=== PATIENT | female | born 1980 | race Caucasian/White ===

== ENCOUNTER 2017-09-16 11:40 | Emergency (ER) | payer MEDICAID ==
[~2017-09-16] VITALS: Ht 167.6 cm; Wt 90.7 kg
[2017-09-16 11:43] VITALS: Ht 167.6 cm; Wt 90.7 kg
[2017-09-16 13:07] VITALS: BP 121/82
== END 2017-09-16 13:20 | disposition home or self-care (01) ==
LOC: ED 11:40
DX: G43.909 Migraine, unspecified, not intractable, without status migrainosus (principal)
CPT/HCPCS: J0780; J1885

== ENCOUNTER 2018-07-11 01:09 | Inpatient (IN) | payer MEDICAID ==
[~2018-07-11] VITALS: Ht 167.6 cm; Wt 91.4 kg
[2018-07-11 01:13] VITALS: Ht 167.6 cm; Wt 91.4 kg
--- NOTE | 2018-07-11 01:51 | NUR ---
DR ROBISON AR BEDSIDE SPEAKING WITH PATIENT.
--- NOTE | 2018-07-11 02:23 | NUR ---
PT CAME TO THE ED TODAY WITH C/O FEELING DIZZY FOR TWO HOURS.
[2018-07-11 03:24] LABS: CALCIUM 8.5 mg/dL (8.5-10.1); CARBON DIOXIDE 27.2 mmol/L (21-32); CHLORIDE SERUM 105 mmol/L (98-107); CREATININE SERUM 0.7 mg/dL (0.6-1.0); GFR1 > 60 mL/min; GLUCOSE SERUM 110 mg/dL (74-106); POTASSIUM SERUM 3.9 mmol/L (3.5-5.1); SODIUM SERUM 139 mmol/L (136-145)
[2018-07-11 03:30] LABS: BASOPHIL % 0.1 % (0-2); PLATELET COUNT 389 x10^3mcL (130-400); RED CELL DISTRIBUTION WIDTH 13.4 % (11.5-14.5)
[2018-07-11 03:32] LABS: microscopic required? YES; urine erythrocyte NEGATIVE (NEGATIVE)
[2018-07-11 03:37] LABS: ALBUMIN 3.3 g/dL (3.4-5.0); ALKALINE PHOSPHATASE 40 U/L (46-116); ALT/SGPT 22 U/L (14-59); AST/SGOT 10 U/L (15-37); BILIRUBIN TOTAL 0.27 mg/dL (0.20-1.00); FREE T4 1.08 ng/dL (0.76-1.46)
--- NOTE | 2018-07-11 05:28 | NUR ---
PT IS RESTING IN BED
--- NOTE | 2018-07-11 07:01 | NUR ---
PT CALLED ME INTO ROOM FROM NURSE'S STATION. PT HOLDING BOTH SIDES OF GURNEY AND SAYING "IT'S HAPPENING AGAIN, WHY IS THIS HAPPENING". PT STATES THAT THE ROOM IS SPINNING AND SHE FEELS NUMBNESS ON THE SIDE OF HER FACE. PT PROVIDED WITH A VOMIT BAG DUE TO SUDDEN ONSET OF NAUSEA. PT PLACED ON LENDING MANAGER AND FULL SET OF VITAL SIGNS OBTAINED. DR ENRIQUETA RAMON.
[2018-07-11 07:03] LABS: MAGNESIUM 1.9 mg/dL (1.8-2.4); PHOSPHOROUS 2.5 mg/dL (2.5-4.9)
--- NOTE | 2018-07-11 07:04 | NUR ---
PT ACTIVELY VOMITING AT THIS TIME.
--- NOTE | 2018-07-11 07:08 | NUR ---
PT MEDICATED WITH ANTIVERT 12.5MG PO PER MD PRN ORDER. PT REMAINS ON CARDIAC MONTIOR AND DENIES NAUSEA AT THIS TIME.
--- NOTE | 2018-07-11 07:10 | NUR ---
PT SITTING UP AT THIS TIME. PT NOT C/O NAUSEA AT THIS TIME. VITAL SIGNS RECHECKED AND DOCUMENTED. PT STATES THAT IF SHE DOES NOT MOVE SHE IS NOT DIZZY AT THIS TIME. PT REMAINS ON MONITOR IN VIEW OF STATION.
--- NOTE | 2018-07-11 07:33 | NUR ---
REPORT CALLED TO VELIA HOWELL
--- NOTE | 2018-07-11 08:05 | NUR ---
RECEIVED PT FROM ER BY KEL. PT AWAKE, ALERTT A/OX4. PT ON RA WITH NO RESP DISTRESS NOTED. PT ON TELE #29, DENIES CHEST PAIN. PT COMPLAINS OF HEADACHE TO BACK OF HEAD WITH CONSTANT DIZZINESS. PT REPORTS SLEEPING AND WAKING UP LAST NIGHT TO HER HEAD "SPINNING". THE EPISODE LASTED FOR 2 MIN AND HAS HAD DIZZINESS SINCE. IV ACCESS RIGHT HAND 20G C/D/I. PT AMBULATES INDEPENDENTLY. NO ISSUES WITH ELIMINATION AT THIS TIME. PT ORIENTED TO ROOM, INSTRUCTED TO USE CALL LIGHT FOR ASSISTANCE. SAFETY MEASURES IN PLACE.
--- NOTE | 2018-07-11 10:00 | NUR ---
DUE MEDS ADMINISTERED ORDERED (SEE EMAR). PT STATES HEADACHE IS 5/10 AND TOLERABLE AT THIS TIME. PT COMPLAINS OF DIZZINESS BUT NOT SEVERE. PT STATES SHE IS AFRAID IT WILL HAPPEN WHEN SHE SLEEPS. (SPINNING) NO ACUTE DISTRESS NOTED AT THIS TIME. WILL MONITOR.
[2018-07-11 10:24] VITALS: BP 132/74
--- NOTE | 2018-07-11 12:00 | NUR ---
ALL NEEDS MET AT THIS TIME. CALL LIGHT WITHIN REACH. SAFETY MAINTAINED
--- NOTE | 2018-07-11 14:57 | NUR ---
Discount pharmacy card and list to low cost medical clinic given to patient by Marie.
[2018-07-11 18:23] VITALS: BP 96/62
--- NOTE | 2018-07-11 18:23 | NUR ---
PT RESTING COMFORTABLY IN BED WITH NO ACUTE DISTRESS OR DISCOMFORT NOTED AT THIS TIME. CT SCAN COMING FOR PATIENT AT THIS TIME.
--- NOTE | 2018-07-11 18:47 | NUR ---
PT BACK FROM CT SCAN. WILL CONTINUE TO MONITOR AND ENDORSE TO SOFTWARE ADMINISTRATOR.
--- NOTE | 2018-07-11 20:06 | NUR ---
RECEIVED PATIENT IN BED AWAKE, ALERT AND ORIENTED WITH NO SIGN OF ACUTE DISTRESS. BREATHING EASY AND NONLABOR SATTING AT 99% RA. TELE#29 NSR ON MONITOR, DENIES CHESTPAIN AT THIS TIME. ABDOMEN SOFT AND NONTENDER WITH ACTIVE BS. IV TO RH INTACT AND INFUSING WELL. WILL CONTINUE TO MONITOR. CALL LIGHT WITH IN REACH.
[2018-07-11 21:26] VITALS: BP 91/55
--- NOTE | 2018-07-12 01:19 | NUR ---
APPEARS SLEEPING THIS TIME BREATHING EASY AND NONLBAOR. WILL CONTINUE TO MONITOR.
--- NOTE | 2018-07-12 05:05 | NUR ---
SLEPT AT LONG INTERVALS DENIES PAIN AND DISCOMFORT THE ENTIRE SHIFT. ALL NEEDS ATTENDED.
[2018-07-12 05:50] VITALS: BP 109/62
[2018-07-12 07:21] LABS: BASOPHIL % 0.2 % (0-2); PLATELET COUNT 329 x10^3mcL (130-400); RED CELL DISTRIBUTION WIDTH 14.5 % (11.5-14.5)
[2018-07-12 07:34] LABS: CALCIUM 8.2 mg/dL (8.5-10.1); CARBON DIOXIDE 25.7 mmol/L (21-32); CHLORIDE SERUM 107 mmol/L (98-107); CREATININE SERUM 0.7 mg/dL (0.6-1.0); GFR1 > 60 mL/min; GLUCOSE SERUM 101 mg/dL (74-106); SODIUM SERUM 140 mmol/L (136-145)
--- NOTE | 2018-07-12 07:41 | NUR ---
A+OX4, NO RESPRIATORY DISTRESS NOTED, TELE 29, PULSES MODERATE AND EQUAL JACEY, NO EDEMA NOTED, LUNG SOUNDS CTA, TOLERATING RA, BOWEL SOUNDS ACTIVE, VOIDING FREELY, AMBUALTORY, SKIN INTACT, IV IN R HAND WITH NS @ 100 ML/HR, SITE WNL.
[2018-07-12 09:15] VITALS: BP 137/59
--- NOTE | 2018-07-12 09:53 | NUR ---
PT RESTING IN BED, COMPLAINING OF COE, TYLENOL PO AND ICE PACK FOR HEAD GIVEN, CALL LIGHT WITHIN REACH.
--- NOTE | 2018-07-12 12:22 | NUR ---
PT RESTING IN BED, TALKING ON PHONE, NO RESPIRATORY DSITRESS NOTED, STATES TYLENOL AND ICE PACK COMPLETELY RELIEVED COE, CALL LIGHT WITHIN REACH.
--- NOTE | 2018-07-12 13:21 | NUR ---
PT RESTING IN BED, DENIES COE, NO RESPRIATORY DSITRESS NOTED, DENIES DIZZINESS, STATES DR VELAZQUEZ TOLD HER SHE WOULD BE DC TODAY AND AWAITING DC PAPERWORK.
[2018-07-12] MEDS ORDERED: LEVAQUIN500 M1 PO (13:25)
[2018-07-12] MEDS ORDERED: MECLIZINE HYD12.5 MG PO (13:27)
[2018-07-12 13:30] VITALS: BP 122/72
[2018-07-12 13:43] VITALS: BP 137/59
--- NOTE | 2018-07-12 14:25 | NUR ---
PT GIVEN DC INSTRUCTIONS INCLUDING PRESCRIPTIONS AND VERBALIZED UNDERSTANDING. IV REMOVED WITH CATHETER INTACT, NO ERYTHEMA OR SWELLING AT SITE, GAUZE AND TAPE PLACED ON SITE, TELE REMOVED AND RETURNED HI SANJANA. PT AWAITING FAMILY TANK WAGON DRIVER. PT STATES SHE CAN WALK INDEPENDENTLY AND DOES NOT NEED WHEELCHAIR AT DC.
--- NOTE | 2018-07-12 15:11 | NUR ---
PT LEFT UNIT WITHN ALL BELONGINGS WITHOUT TELLING NURSE. IV AND TELE PREVIOUSLY REMOVED.
== END 2018-07-12 15:10 | disposition home or self-care (01) | DRG 48 ==
LOC: ED 01:09 → DU 04:27
PROVIDERS: Emergency Medicine; ADMIT Internal Medicine
DX: G90.9 Disorder of the autonomic nervous system, unspecified (principal); N17.0 Acute kidney failure with tubular necrosis; N39.0 Urinary tract infection, site not specified; M51.26 Other intervertebral disc displacement, lumbar region; G43.909 Migraine, unspecified, not intractable, without status migrainosus; D64.9 Anemia, unspecified; Z68.32 Body mass index [BMI] 32.0-32.9, adult
CPT/HCPCS: 83880; 84439; 87804; J1956; J7030; J8597; Q0092; Q0162